=== PATIENT | female | born 1940 | race Caucasian/White ===

== ENCOUNTER → 2020-08-02 | Day surgery (SDC) | payer MEDICARE ==
[~2020-08-02] MED LIST: ALBUTEROL SULFAT4 M1 PO; ALBUTEROL2.5 MG/3 M INH; ALLEGRA ALLERG180 MG PO; ALPRAZOLAM ER1 MG PO; ALPRAZOLAM1 MG PO; ASA81BEC PO; ASPIR 8181 MG PO; ATORVASTATIN CA20 MG PO; BAYER CHEWABLE81 MG PO; CALCIUM-MAG-ZI1 EACH PO; CO Q-10100 M1 PO; COLACE100 MG PO; CRANBERRY200 MG PO; CVS SUPER CRAN1 EACH PO; ECEE PLUS TABL1 EACH PO; EFFIENT10 MG PO; FOLIC ACID0.4 MG PO; FOLIC ACID1 MG PO; FUROSEMIDE 20 M20 M1 PO; GABAPENTIN 100100 MG PO; LIORESAL 10 MG10 MG PO; LIPITOR 10 MG10 M1 PO; MAGNESIUM500 MG PO; MELATONIN10 M3 PO; MUCINEX600 MG PO; NITROSTAT0.4 MG SUBLING; OXYGEN MISCELL; PERFOROMIS20 MCG/2 M INH; POTASSIUM600 MG PO; POTASSIUM99 M1 PO; PROAIR HFA8.5 GM INH; PROTONIX40 M2 PO; STOOL SOFTENER100 MG PO; TRAMADOL 50 MG50 MG PO; TYLENOL EXTRA500 MG PO; VITAMIN B-12500 MCG PO; VITAMIN B12-FO1 EAC1 PO; VITAMIN C500 M1 PO; VITAMIN D325 MC5 PO; VITAMIN E400 UNI2 PO; VITAMINC500 PO; XARELTO20 MG PO; YUPELRI175 MCG/3 INH
--- NOTE | ~2020-08-02 | PROC ---
[facility] [address] [place] [address] PROCEDURE REPORT Name: NILSON MOHAN Room: [facility]#: [id number] Admission: 08/02/20 Attend Phys: Jose Ramey DO Discharge: Date of : 42 Report #: [id number] THIS REPORT FOR: //name// cc: GARRET LEE MD Physician not on staff ~ THIS REPORT FOR: //name// For GI report, please see the Provation report in Perceptive 7 content. By: 1407Medical Records Staff DUANE /POLINA
[2020-08-02 09:57] LABS: HEMATOCRIT 40.8 % (37.0-47.0); HEMOGLOBIN 13.8 gm/dL (12.0-15.0); MCHC 33.9 g/dL (28.0-37.0); MCV 97.6 fL (80.0-100.0); RBC 4.18 mil/uL (4.20-5.00); WBC 7.4 thou/uL (4.0-11.0)
[2020-08-02 10:03] LABS: CALCIUM 8.6 mg/dL (8.5-10.1); CREATININE 1.2 mg/dL (0.6-1.3); POTASSIUM 3.5 mmol/L (3.5-5.1)
--- NOTE | 2020-08-02 11:10 | EKG ---
[place] [address] ELECTROCARDIOGRAM REPORT Name: NILSON MOHAN Room: [facility] [employer]#: [id number] Admission: 08/02/20 Attend Phys: Jose Ramey, Discharge: Date of : 42 Date of Service: 08/02/20 0936 Report #: [id number] THIS REPORT FOR: //name// [facility] Test Date: 2020-08-02 Test Time: 09:36:47 Pat Name: NILSON MOHAN Department: Room: Gender: Loan Broker: : 1940 Requested By: Jose Ramey Order Number: [id number] Reading MD: Abdi Madrid Measurements Intervals [place] Rate: 67 P: 11 NE: 290 QRS: 33 QRSD: 142 T: -23 QT: 441 QTc: 466 Interpretive Statements Sinus rhythm Atrial premature complex Prolonged NE interval Right bundle branch block Inferior infarct, age indeterminate Compared to ECG 03/25/2009 09:31:18 Atrial premature complex(es) now present First degree AV block now present Myocardial infarct finding still present Electronically Signed On 08-02-2020 11:10:28 CDT by Abdi Madrid [email or web address] <ELECTRONICALLY SIGNED> By: Abdi Madrid MD, FAC 08/02/20 1110 0936 Abdi Madrid MD, FAC /EPI
[2020-08-02 11:47] LABS: CALCIUM 8.8 mg/dL (8.5-10.1); CREATININE 1.2 mg/dL (0.6-1.3); POTASSIUM 3.5 mmol/L (3.5-5.1)
[2020-08-02 12:02] LABS: ALBUMIN 3.7 g/dL (3.4-5.0); TOTAL PROTEIN 8.1 g/dL (6.4-8.2)
--- NOTE | 2020-08-06 09:08 | PATH ---
[address] [place] [address] PATHOLOGY RPT PROCEDURE Name: NILSON MOHAN Navin Room: [facility].#: [id number] Admission: 08/02/20 Date of : 42 Discharge: Report #: [id number] Path Case #: [id number] [facility] Accession Number: [id number] . 01 Material submitted: . stomach - ANTRAL BIOPSY FOR H. PYLORI . 01 Clinical history: . EPIGASTRIC PAIN, HISTORY OF COLON CANCER . 02 Diagnosis: Antral biopsy: - Moderate chronic antral gastritis, suggesting reactive gastropathy (chemical gastritis), negative for Helicobacter pylori organisms and dysplasia. . (AI:mml; 08/05/2020) [facility] 08/05/2020 1644 Local . 02 Comment: Special stain: H. pylori immuno. . (AI:mml; 08/05/2020) . 02 Electronically signed: . Phillip Ramirez MD, Pathologist NPI- [id number] . 01 Gross description: . Received in formalin labeled "Nilson Mohan, antral biopsy for H. pylori" are two pelletier-brown soft tissue fragments measuring in aggregate 0.6 x 0.4 x 0.1 cm. The specimen is submitted entirely in A1. ([facility] [place]; 08/04/2020) [facility] 08/04/2020 1438 Local . 02 Pathologist provided ICD-10: K29.50 . 02 CPT . 712315, [id number] Specimen Comment: A courtesy copy of this report has been sent to [phone], [phone] Specimen Comment: [phone] Specimen Comment: Report sent to / DR LEE Performed at: [address] [id number] MD Tai Goodwin MD Phone: [phone] Performed at: [address] [place] [address] PATHOLOGY RPT PROCEDURE Name: NILSON MOHAN Room: [facility]#: [id number] Admission: 08/02/20 Date of : 42 Discharge: Report #: [id number] Path Case #: [id number] [address] [id number] MD Phillip Ramirez MD Phone: [phone]
== END | disposition home or self-care (01) ==
LOC: M.SUR 08:43
PROVIDERS: ATTEND Internal Medicine Gastroenterology
DX: R10.84 Generalized abdominal pain (principal); R10.13 Epigastric pain; R19.4 Change in bowel habit; K64.4 Residual hemorrhoidal skin tags; K57.30 Diverticulosis of large intestine without perforation or abscess without bleeding; K29.50 Unspecified chronic gastritis without bleeding; K31.89 Other diseases of stomach and duodenum; K44.9 Diaphragmatic hernia without obstruction or gangrene; I10 Essential (primary) hypertension; J44.9 Chronic obstructive pulmonary disease, unspecified; Z85.038 Personal history of other malignant neoplasm of large intestine; Z20.828 Contact with and (suspected) exposure to other viral communicable diseases; Z98.0 Intestinal bypass and anastomosis status; Z79.899 Other long term (current) drug therapy; Z98.890 Other specified postprocedural states